=== PATIENT | female | born 1985 | race Caucasian/White ===

== ENCOUNTER 2022-01-25 23:55 | Emergency (ER) | payer MEDICAID, SELFPAY ==
[2022-01-25 23:56] VITALS: BP 130/89; PULSE 103; RESP 18; TEMP 36.4; O2SAT 98; BMI 22.6
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
[2022-01-26] MEDS: Morphine 4 MG/ML Syringe IV ×2 (00:16→01:16)
[2022-01-26] MEDS: Ondansetron 4 MG/2 ML Vial IV ×2 (00:16→01:16)
[2022-01-26 00:36] LABS: Absolute Lymphocyte Count 5.36 X10^3/uL (0.83-4.51); Basophil# 0.07 X10^3/uL; Basophil% 0.2 % (0-1); Eosinophil# 0.13 X10^3/uL; Eosinophils% 0.4 % (0-5); Hematocrit 43.5 % (37-47); Hemoglobin 14.8 g/dL (12.0-15.0); Lymphocyte # 5.36 X10^3/ul (0.83-4.51); Lymphocyte % 17.5 % (19-41); Mean Corpuscular Hgb 31.1 pg (27.0-32.0); Mean Corpuscular Volume 91.4 fL (81-99); Mean Platelet Vol. 9.3 fl (6.2-12.0); Monocyte# 1.86 X10^3/uL; Monocyte% 6.1 % (0-10); NRBC Flagged by Analyzer 0.1 % (0-5); Neutrophil % 74.9 % (47-70); POSITIVE COUNT YES; POSITIVE DIFFERENTIAL YES; POSITIVE MORPHOLOGY YES; Platelet Count 341 K/mm3 (150-450); RBC Distribution Width SD 43.6 fl (35.1-43.9); Red Blood Count 4.76 M/mm3 (4.2-5.4)
[2022-01-26 00:42] LABS: Internal QC Validated? YES +Cl - CLEAR BKGD; Pregnancy, Serum, hCG Quali. NEGATIVE Negative
[2022-01-26 00:44] LABS: International Normalized Ratio 1.1; Prothrombin Time (Protime)PT. 13.7 SECONDS (11.7-14.9)
[2022-01-26 00:50] LABS: AST(SGOT) 56 U/L (15-37); Alanine Aminotransfer ALT/SGPT 37 U/L (13-56); Albumin, Serum 4.1 g/dL (3.2-5.0); Alkaline Phosphatase 59 U/L (45-117); Anion Gap 12 (5-15); BUN 11 mg/dL (7-18); BUN/Creat Ratio 13.1 RATIO (10-20); Bilirubin, Direct 0.07 mg/dL (0.00-0.30); Calcium,Total 8.7 mg/dL (8.5-10.1); Chloride 110 mmol/L (98-107); Creatinine, Serum 0.84 mg/dL (0.55-1.02); Differential Indicated SCAN CRITERIA MET; EST Glomerular Filtration Rate 82 mL/min (>60); Est Glom Filt Rate - Afr Amer 100 mL/min (>60); Estimated Creatinine Clearance 74.64 ml/min; Globulin 3.4 g/dL (2.2-4.2); Glucose 125 mg/dL (74-106); Potassium 3.6 mmol/L (3.5-5.1); Protein, Total 7.5 g/dL (6.4-8.2); Sodium Level 143 mmol/L (136-145); White Blood Count 30.7 K/mm3 (4.4-11.0)
[2022-01-26 00:54] LABS: Differential Comment SCANNED
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
--- NOTE | 2022-01-26 01:03 | ED.RN ---
NO OLD EKGS ON FILE
[2022-01-26] MEDS: Cefazolin 1 GM/50 ML BAG IV (01:10)
[2022-01-26 01:18] VITALS: BP 101/66; PULSE 102; RESP 20; O2SAT 96
[2022-01-26 02:12] VITALS: BP 75/64; PULSE 74; RESP 16; O2SAT 98
--- NOTE | 2022-01-26 02:48 | ED.RN ---
[facility] CALLED FOR TRANSPORT ETA 8 AM ATTEMPTING TO OUTSOURCE AT THIS TIME
[2022-01-26 03:00] VITALS: O2SAT 99
[2022-01-26 03:09] LABS: Bacteria 0 SEEN /hpf (None Seen); Mucous, Urine 0 SEEN /hpf (<or=2+); Red Blood Cells-Urine 0 SEEN /hpf (0-5)
[2022-01-26 03:17] LABS: Color, Urine Yellow (Yellow); Glucose, Dipstick Normal (Normal); Ketone-Dipstick Negative (Negative); Leukocyte Esterase-Dipstick 25 /ul (Negative); Nitrite-Dipstick Negative (Negative); Occult Blood-Urine 10 /ul (Negative); Protein-Dipstick 30 mg/dl (Negative); Urine Bilirubin Dipstick Negative (Negative); Urine Clarity Clear (Clear); Urine Urobilinogen Normal (Normal)
[2022-01-26 03:34] VITALS: BP 96/70; PULSE 108; RESP 16; TEMP 36.9; O2SAT 99
[2022-01-26 03:35] LABS: Squamous Epithelial Cells - UA 0-5 SEEN /hpf (5-10); White Blood Cells 0-5 SEEN /hpf (0-5)
--- NOTE | 2022-01-26 03:35 | ED.RN ---
REPORT CALLED TO [facility] AT [facility]
[2022-01-26 03:36] LABS: Amphetamine Urine VISTA NEGATIVE (<1000 ng/mL); Barbiturate Urine VISTA NEGATIVE (< 200 ng/mL); Benzodiazepine Urine VISTA NEGATIVE (< 200 ng/mL); Cocaine Urine VISTA NEGATIVE (< 300 ng/mL); Ecstacy Urine VISTA NEGATIVE (< 500 ng/mL); Methadone Urine VISTA NEGATIVE (< 300 ng/mL); PCP Urine VISTA NEGATIVE (< 25 ng/mL); THC Urine VISTA NEGATIVE (< 50 ng/mL); Vista UDS pH Range 5
[2022-01-26] MEDS: fentaNYL 100 MCG/2 ML Ampul 25 MCG IV (04:11)
[2022-01-26 04:15] VITALS: BP 106/64; PULSE 104; RESP 20; O2SAT 98
[2022-01-28 13:55] LABS: Pathologist Review Reviewed
== END 2022-01-26 04:17 | disposition short-term general hospital (02) ==
PROVIDERS: Emergency Provider Emergency Medicine; Visit Provider Emergency Medicine
DX: S12.500A Unspecified displaced fracture of sixth cervical vertebra, initial encounter for closed fracture (principal); F10.129 Alcohol abuse with intoxication, unspecified; S02.113A Unspecified occipital condyle fracture, initial encounter for closed fracture; S92.002B Unspecified fracture of left calcaneus, initial encounter for open fracture; S42.101A Fracture of unspecified part of scapula, right shoulder, initial encounter for closed fracture; F17.210 Nicotine dependence, cigarettes, uncomplicated; S00.03XA Contusion of scalp, initial encounter; V48.4XXA Person boarding or alighting a car injured in noncollision transport accident, initial encounter; S00.81XA Abrasion of other part of head, initial encounter; S40.811A Abrasion of right upper arm, initial encounter; S20.411A Abrasion of right back wall of thorax, initial encounter; S30.810A Abrasion of lower back and pelvis, initial encounter; S70.211A Abrasion, right hip, initial encounter; S50.311A Abrasion of right elbow, initial encounter; S50.811A Abrasion of right forearm, initial encounter; S91.312A Laceration without foreign body, left foot, initial encounter; Y90.6 Blood alcohol level of 120-199 mg/100 ml; R94.31 Abnormal electrocardiogram [ECG] [EKG]; R00.0 Tachycardia, unspecified
CPT/HCPCS: 51702; 70450; 71260; 72125; 73610; 73650; 74177; 80048; 80076; 80307; 81001; 82077; 84703; 85025; 85610; 85730; 93005; 99285; J7040; Q9967; A4216; J2405